=== PATIENT | female | born 1975 | race Caucasian/White ===

== ENCOUNTER 2018-05-23 20:02 | Outpatient (CLI) | payer BC ==
[2018-05-23 20:37] LABS: ADD UMIC YES; UR ASCORBIC ACID NEGATIVE (NEGATIVE); UR BACTERIA FEW /HPF (NONE SEEN); UR BILIRUBIN (Dip) NEGATIVE (NEGATIVE); UR BLOOD (Dip) 2+ mg/dL (NEGATIVE); UR CLARITY CLEAR (CLEAR); UR COLOR STRAW (YELLOW); UR GLUCOSE (Dip) NEGATIVE (NEGATIVE); UR KETONES (Dip) NEGATIVE (NEGATIVE); UR LEUKOCYTE ESTERASE (Dip) NEGATIVE Leu/ul (NEGATIVE); UR MUCUS FEW /HPF (NONE SEEN); UR NITRITE (Dip) NEGATIVE (NEGATIVE); UR RBC 2 /HPF (0-5); UR SPECIFIC GRAVITY (Dip) 1.004 (1.003-1.030); UR SQUAMOUS EPITHELIAL CELL FEW /HPF (FEW); UR TOTAL PROTEIN (Dip) NEGATIVE (NEGATIVE); UR UROBILINOGEN (Dip) NEGATIVE (NEGATIVE); UR WBC 2 /HPF (0-5)
== END 2018-05-23 23:02 | disposition home or self-care (01) ==
LOC: OBT 20:02 → L-D 20:02 → OBT 23:02
DX: O26.852 Spotting complicating pregnancy, second trimester (principal); O34.12 Maternal care for benign tumor of corpus uteri, second trimester; D25.9 Leiomyoma of uterus, unspecified; Z3A.20 20 weeks gestation of pregnancy
CPT/HCPCS: 76817; 81001

== ENCOUNTER 2018-09-20 23:50 | Inpatient (IN) | payer BC, OTHER ==
[2018-09-21] MEDS ORDERED: MISOPROSTOL 200 MCG TAB PR (02:00)
[2018-09-21] MEDS: LACTATED RINGER'S 1,000 ML IV ×5 (02:00→18:59)
[2018-09-21] MEDS ORDERED: LIDOCAINE 1% (MPF) 30 ML INJ INJ (02:00)
[2018-09-21] MEDS ORDERED: OXYTOCIN 30 UNITS/LR 500 ML IV ×2 (02:00)
[2018-09-21] MEDS ORDERED: METHYLERGONOVINE 0.2 MG INJ IM (02:00)
[2018-09-21] MEDS ORDERED: CARBOPROST 250 MCG INJ IM (02:00)
[2018-09-21] MEDS ORDERED: BUTORPHANOL 2 MG INJ IV (02:00)
[2018-09-21 02:06] LABS: ADD MAN DIFF? NO
[2018-09-21 02:10] LABS: BASOPHILS % 0.3 % (0.0-2.0); EOSINOPHILS % 0.2 % (0.0-7.0); HEMATOCRIT 32.3 % (37.0-47.0); HEMOGLOBIN 11.1 g/dl (12.0-16.0); LYMPHOCYTES # 1.3 10^3/ul (0.8-2.9); LYMPHOCYTES % 10.8 % (15.0-51.0); MEAN CORPUSCULAR HEMOGLOBIN 28.1 pg (29.0-33.0); MEAN CORPUSCULAR HGB CONC 34.4 g/dl (32.0-37.0); MEAN CORPUSCULAR VOLUME 81.8 fl (82.0-101.0); MONOCYTE # 0.5 10^3/ul (0.3-0.9); MONOCYTES % 4.2 % (0.0-11.0); NEUTROPHIL # 9.9 10^3/ul (1.6-7.5); NEUTROPHILS % 84.2 % (39.0-77.0); PLATELET COUNT 262 10^3/UL (140-415); RED BLOOD COUNT 3.95 10^6/ul (4.20-5.40)
[2018-09-21 02:10] LABS: WHITE BLOOD COUNT 11.8 10^3/ul (4.8-10.8)
[2018-09-21 03:36] LABS: HEPATITIS B SURFACE ANTIGEN NEGATIVE (NEGATIVE)
[2018-09-21 04:21] LABS: INR 0.89; PROTIME 12.1 Sec (11.9-14.9); PT RATIO 0.9
[2018-09-21] MEDS ORDERED: NALOXONE (0.4 MG/ML) INJ IV (04:30)
[2018-09-21] MEDS ORDERED: FENTAnyl 2MCG/ML-ROPIV 0.2% 100 ML (04:31)
[2018-09-21] MEDS: FENTAnyl 2MCG/ML-ROPIV 0.2% 100 ML BAG EPI ×3 (07:48→21:48)
[2018-09-21] MEDS: OXYTOCIN 30 UNITS/LR 500 ML IV (10:02)
[2018-09-21 20:40] LABS: RAPID PLASMA REAGIN NONREACTIVE (NR)
[2018-09-22] MEDS: MINERAL OIL LIGHT 10 ML VIAL TOP ×2 (03:28)
[2018-09-22] MEDS: OXYTOCIN 30 UNITS/LR 500 ML IV (04:03)
[2018-09-22] MEDS: IBUPROFEN 600 MG TAB PO ×5 (05:49→23:54)
[2018-09-22] MEDS ORDERED: MISOPROSTOL 200 MCG TAB PR (06:00)
[2018-09-22] MEDS ORDERED: METHYLERGONOVINE 0.2 MG INJ IM (06:00)
[2018-09-22] MEDS ORDERED: OXYCODONE/ASPIRIN (4.88/325) TAB PO ×2 (06:00)
[2018-09-22] MEDS ORDERED: ZOLPIDEM 5 MG TAB PO (06:00)
[2018-09-22] MEDS ORDERED: CARBOPROST 250 MCG INJ IM (06:00)
[2018-09-22] MEDS ORDERED: OXYTOCIN 30 UNITS/LR 500 ML IV (06:00)
[2018-09-22] MEDS: WITCH HAZEL/GLYCERIN PAD PR (06:46)
[2018-09-22] MEDS: LANOLIN HPA 1 PKT TOP (06:47)
[2018-09-22] MEDS: BENZOCAINE 20% 56 ML SPRAY TOP (06:47)
[2018-09-22] MEDS: LACTATED RINGER'S 1,000 ML IV (09:21)
[2018-09-22] MEDS: SENNA/DOCUSATE NA (8.6MG/50MG) TAB PO ×2 (12:38→21:00)
[2018-09-23] MEDS: IBUPROFEN 600 MG TAB PO ×3 (05:39→17:51)
[2018-09-23 06:58] LABS: ADD MAN DIFF? NO
[2018-09-23 07:02] LABS: BASOPHILS % 0.2 % (0.0-2.0); EOSINOPHILS # 0.3 10^3/ul (0.0-0.5); EOSINOPHILS % 1.6 % (0.0-7.0); HEMATOCRIT 24.7 % (37.0-47.0); HEMOGLOBIN 8.4 g/dl (12.0-16.0); LYMPHOCYTES # 2.2 10^3/ul (0.8-2.9); MEAN CORPUSCULAR HEMOGLOBIN 28.3 pg (29.0-33.0); MEAN CORPUSCULAR VOLUME 83.2 fl (82.0-101.0); MEAN PLATELET VOLUME 11.5 fl (7.4-10.4); MONOCYTE # 0.9 10^3/ul (0.3-0.9); MONOCYTES % 4.9 % (0.0-11.0); NEUTROPHIL # 13.7 10^3/ul (1.6-7.5); NEUTROPHILS % 79.5 % (39.0-77.0); PLATELET COUNT 199 10^3/UL (140-415); RED BLOOD COUNT 2.97 10^6/ul (4.20-5.40); RED CELL DISTRIBUTION WIDTH 13.4 % (11.5-14.5)
[2018-09-23 07:02] LABS: WHITE BLOOD COUNT 17.2 10^3/ul (4.8-10.8)
[2018-09-23] MEDS: SENNA/DOCUSATE NA (8.6MG/50MG) TAB PO ×2 (08:45→21:00)
[2018-09-23] MEDS: WITCH HAZEL/GLYCERIN PAD PR (09:56)
[2018-09-24] MEDS: LANOLIN HPA 1 PKT TOP (00:46)
[2018-09-24] MEDS: IBUPROFEN 600 MG TAB PO ×3 (00:46→12:12)
[2018-09-24] MEDS: SENNA/DOCUSATE NA (8.6MG/50MG) TAB PO (09:00)
[2018-09-24] MEDS: DIPHTH/TET/ACEL PERTUSS (ADULT) 0.5 ML VIAL IM* (09:35)
== END 2018-09-24 15:57 | disposition home or self-care (01) | DRG 807 ==
LOC: OBT 23:50 → PP1 09-22 06:00 → L-D 23:50
PROVIDERS: Obstetrics & Gynecology
PROC: 10E0XZZ Delivery of Products of Conception, External Approach (ICD-10-PCS; principal; 2018-09-22)
PROC: 0KQM0ZZ Repair Perineum Muscle, Open Approach (ICD-10-PCS; 2018-09-22)
DX: O70.1 Second degree perineal laceration during delivery (principal); O99.02 Anemia complicating childbirth; Z37.0 Single live birth; Z3A.37 37 weeks gestation of pregnancy
CPT/HCPCS: 62322; 85025; 85610; 85730; 86592; 86850; 86900; 86901; 87340; 90715; 99464